=== PATIENT | male | born 1965 | race Caucasian/White ===

== ENCOUNTER 2019-07-11 06:38 | Emergency (ER) | payer BC ==
[2019-07-11] MEDS ORDERED: Albuterol/Ipratropium 3.0-0.5 MG/3 ML Neb Soln NEB ONE (07:12)
--- NOTE | 2019-07-11 07:30 | EDM.PDOC ---
ED HPI GENERAL MEDICAL PROBLEM - General Chief Complaint: Respiratory Problem Stated Complaint: SOB Time Seen by Provider: 07/11/19 06:58 Source of Information: Reports: Patient, RN Notes Reviewed - History of Present Illness INITIAL COMMENTS - FREE TEXT/NARRATIVE: 53-year-old male comes in with cough, shortness of breath. He did have onset of some type of upper respiratory infection about a week ago with cough and what sounds like chills, possible fever. He was ill for several days and then did seem to be getting better. He states he started coughing more during the night and again this morning Cough has been nonproductive. He is concerned about worsening shortness of breath. He states that he is especially more shortness of breath with exertion. He does have fairly longstanding smoking history initially stating that he started 20 years ago but then admitted he started in high school which would be more like 35 years ago. 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 He did not get a flu shot last fall. - Related Data Allergies Allergy/AdvReac Type Severity Reaction Status Date / Time No Known Allergies Allergy Verified 07/11/19 06:52 Home Meds: Home Meds . [No Known Home Meds] 07/11/19 [History] Past Medical History - Past Health History Medical/Surgical History: Denies Medical/Surgical History Social & Family History - Tobacco Use Smoking Status *Q: Current Some Day Smoker Years of Tobacco use: 20 Packs/Tins Daily: 0.2 ED ROS GENERAL - Review of Systems Review Of Systems: See Below Constitutional: Reports: Fever, Chills HEENT: Denies: Rhinitis, Sinus Problem, Throat Pain Respiratory: Reports: Shortness of Breath, Wheezing, Cough ([place]), Sputum Cardiovascular: Denies: Chest Pain (And) GI/Abdominal: Denies: Abdominal Pain, Nausea, Vomiting Skin: Reports: No Symptoms ED EXAM, GENERAL - Physical Exam Exam: See Below General Appearance: Alert, No Apparent Distress Nose: Normal Inspection Throat/Mouth: Normal Inspection, Normal Oropharynx Head: Atraumatic. No: Facial Swelling Neck: Supple, Full Range of Motion Respiratory/Chest: No Respiratory Distress, Lungs Clear, Normal Breath Sounds. No: Rhonchi, Wheezing Cardiovascular: Tachycardia Extremities: No: Pedal Edema, Leg Pain Neurological: Alert, Oriented Skin Exam: Warm, Dry, Normal Color Course - Vital Signs Last Recorded V/S: Last Vital Signs Temp 97.2 F 07/11/19 06:52 Pulse 104 H 07/11/19 06:52 Resp 16 07/11/19 06:52 BP 142/109 H 07/11/19 06:52 Pulse Ox 98 07/11/19 07:21 - Orders/Labs/Meds Orders: Active Orders 24 hr Category Date Time Status RT Aerosol Therapy [RC] ASDIRECTED Care 07/11/19 07:13 Active CXR [Chest 2V] [CR] Stat Exams 07/11/19 07:13 Taken Meds: Medications Discontinued Medications Generic Name Dose Route Start Last Admin Trade Name Vijay PRN Reason Stop Dose Admin Albuterol/Ipratropium 3 ml 07/11/19 07:12 07/11/19 07:20 Duoneb 3.0-0.5 Mg/3 Ml NEB 07/11/19 07:13 3 ml ONETIME ONE Administration - Re-Assessments/Exams Free Text/Narrative Re-Assessment/Exam: 07/11/19 07:55 Chest x-ray suggestive for early pneumonia. There is some increased infiltrate peribronchial on the right and also left lower lung field not actively coughing while I have been with him in the room. Febrile. Sats are good and moving air relatively well will prescribe an albuterol inhaler. Strongly encouraged him to quit smoking. Will treat with Zithromax and he does need follow-up in about 1 week. Departure - Departure Time of Disposition: 07:56 Disposition: Home, Self-Care 01 Clinical Impression: Pneumonia, Bronchitis - Discharge Information Instructions: Sepsis, Adult, Community-Acquired Pneumonia, Adult Referrals: PCP,Not In Area [Primary Care Provider] - Forms: ED Department Discharge, ED Return to Work/School Form Additional Instructions: Albuterol inhaler 2 puffs every 4 to 6 hours as needed for wheezing or difficulty breathing, Zithromax antibiotic 500 milligrams today and then 250 mg for the next 4 days. Try very hard to stop smoking. Vaporizer or steam as needed. Follow-up at our [facility] medical clinic in about 1 week for recheck. Call [phone] for appointment. Retiurn to ED as needed. Sepsis Event Note - Evaluation Sepsis Screening Result: No Definite Risk - Focused Exam Vital Signs: Vital Signs Temp Pulse Resp BP Pulse Ox Pulse Ox 07/11/19 07:21 98 07/11/19 06:52 97.2 F 104 H 16 142/109 H 98 Date Exam was Performed: 07/11/19 Time Exam was Performed: 08:02 - My Orders Last 24 Hours: My Active Orders 07/11/19 07:13 RT Aerosol Therapy [RC] ASDIRECTED CXR [Chest 2V] [CR] Stat - Assessment/Plan Last 24 Hours: My Active Orders 07/11/19 07:13 RT Aerosol Therapy [RC] ASDIRECTED CXR [Chest 2V] [CR] Stat
--- NOTE | 2019-07-11 08:51 | CR ---
Chest: PA and lateral views of the chest were obtained. Comparison: No prior chest x-ray is available. Heart is mildly enlarged. Increased lung markings are seen believed to represent pulmonary vascular congestion. Mild asymmetric increased density within left lung base is seen either due to atelectasis or possibly very minimal early pneumonia. Probable small bilateral pleural effusions. Impression: 1. Findings suspicious for mild CHF. 2. Minimal increased density of the left base either due to atelectasis or minimal area of developing pneumonia. Please correlate with the patient's symptoms. Diagnostic code #3 This report was dictated in [place] Standard Time
== END 2019-07-11 08:09 | disposition home or self-care (01) ==
LOC: JD.ED 06:38
DX: J18.9 Pneumonia, unspecified organism (principal); J40 Bronchitis, not specified as acute or chronic; F17.210 Nicotine dependence, cigarettes, uncomplicated
CPT/HCPCS: 71046; 71046-26; 94640; 99283; 99285-25; J7620-GY

== ENCOUNTER 2019-07-31 05:57 | Emergency (ER) | payer BC, OTHER ==
--- NOTE | 2019-07-31 06:16 | EDM.PDOC ---
<Jens Doan - Last Filed: 07/31/19 06:22> ED HPI GENERAL MEDICAL PROBLEM - General Chief Complaint: Respiratory Problem Stated Complaint: SOB/COUGH/BOTH LEGS ARE SWOLLEN Time Seen by Provider: 07/31/19 06:16 - History of Present Illness INITIAL COMMENTS - FREE TEXT/NARRATIVE: 53-year-old male presents the emergency room with increasing shortness of breath and worsening lower extremity edema. The patient was seen here on the thought to have pneumonia started on antibiotics. He did not improve he was seen in the clinic on the repeat x- ray showed possible worsening pneumonia with cardiomegaly increased vascular markings. He was treated with the benzoin 100 mg 3 times daily a Z-Tremayne and Augmentin 1000 mg twice daily. Since then he continues to worsen he has a productive cough bringing up foamy white material without evidence of blood but it is a very frequent cough. He is also noticed increased leg swelling. He has not run fevers in quite a while he is having 3 or 4 loose stools a day and the first day of the second round of antibiotics he had significant nausea and vomited a few times. Patient denies any chest pain other than when he coughs. Patient quit smoking back in June and he has an extensive smoking history. Chest Pain Score (Numeric/FACES): 4 - Related Data Allergies Allergy/AdvReac Type Severity Reaction Status Date / Time No Known Allergies Allergy Verified 07/31/19 06:20 Home Meds: Home Meds Amoxicillin/Potassium Clav [Amox-Clav ER 1,000-62.5 mg Tab] 07/31/19 [History] Levofloxacin [Levaquin] 750 mg PO DAILY #7 tablet 07/31/19 [Rx] Past Medical History - Past Health History Medical/Surgical History: Denies Medical/Surgical History ED ROS GENERAL - Review of Systems Review Of Systems: See Below Constitutional: Denies: Fever, Chills HEENT: Reports: No Symptoms Respiratory: Reports: Shortness of Breath, Cough, Sputum (Clear foamy sputum). Denies: Hemoptysis Cardiovascular: Reports: Dyspnea on Exertion, Edema. Denies: Chest Pain Endocrine: Reports: No Symptoms GI/Abdominal: Reports: Other (Some nausea and vomiting when he started the 2 most recent antibiotics this has resolved he has some intermittent stomach upset he is having 3-4 loose semi-formed stools daily not having significant abdominal pain) : Reports: No Symptoms Musculoskeletal: Reports: No Symptoms Skin: Reports: No Symptoms Neurological: Reports: No Symptoms ED EXAM, GENERAL - Physical Exam Exam: See Below Exam Limited By: No Limitations General Appearance: Alert, No Apparent Distress Head: Atraumatic, Normocephalic Neck: Normal Inspection, Supple, Non-Tender, Full Range of Motion, Other (Seen JVD was somewhat difficult every time I put my hand on his right upper quadrant he would start a cough) Respiratory/Chest: No Respiratory Distress, Lungs Clear, Decreased Breath Sounds Cardiovascular: Regular Rate, Rhythm, No Murmur, Other (1-2+ pitting edema bilateral lower extremities) GI/Abdominal: Normal Bowel Sounds, Soft, Non-Tender (Male) Exam: No Hernia Back Exam: Normal Inspection. No: CVA Tenderness (L), CVA Tenderness (R) Extremities: Other (Bilateral lower extremity pitting edema) Neurological: Alert, Oriented, Normal Cognition Course - Vital Signs Last Recorded V/S: Last Vital Signs Temp 98.6 F 07/31/19 06:15 Pulse 109 H 07/31/19 06:15 Resp 20 07/31/19 06:15 BP 110/88 07/31/19 06:15 Pulse Ox 99 07/31/19 06:15 - Orders/Labs/Meds Orders: Active Orders 24 hr Category Date Time Status EKG Documentation Completion [RC] STAT Care 07/31/19 06:48 Active LD ISOENZYMES [REF] Stat Lab 07/31/19 07:12 Received Heparin Sodium/D5W [Heparin 25,000 Units in D5W 500 ML] Med 07/31/19 08:45 Active 25,000 units in 500 ml IV TITRATE Medication Orders Heparin Sodium/Dextrose (Heparin 25,000 Units In D5w 500 Ml) 25,000 units in 500 mls @ 18 mls/hr IV TITRATE JED; Protocol Last Admin: 07/31/19 08:47 Dose: 12 units/kg/hr, 18 mls/hr Labs: Laboratory Tests 07/31/19 07/31/19 07/31/19 Range/Units 07:12 07:12 07:12 WBC 7.70 (4.23-9.07) K/mm3 RBC 4.39 L (4.63-6.08) M/mm3 Hgb 14.5 (13.7-17.5) gm/dl Hct 43.8 (40.1-51.0) % MCV 99.8 H (79.0-92.2) fl MCH 33.0 H (25.7-32.2) pg MCHC 33.1 (32.2-35.5) g/dl RDW Std Deviation 51.4 H (35.1-43.9) fL Plt Count 192 (163-337) K/mm3 MPV 10.5 (9.4-12.3) fl Neut % (Auto) 73.1 H (34.0-67.9) % Lymph % (Auto) 15.7 L (21.8-53.1) % [place] % (Auto) 10.4 (5.3-12.2) % Eos % (Auto) 0.4 L (0.8-7.0) Baso % (Auto) 0.3 (0.1-1.2) % Neut # (Auto) 5.63 H (1.78-5.38) K/mm3 Lymph # (Auto) 1.21 L (1.32-3.57) K/mm3 [place] # (Auto) 0.80 (0.30-0.82) K/mm3 Eos # (Auto) 0.03 L (0.04-0.54) K/mm3 Baso # (Auto) 0.02 (0.01-0.08) K/mm3 ESR (0-15) mm/hr Sodium 135 L (136-145) mEq/L Potassium 4.2 (3.5-5.1) mEq/L Chloride 100 (98-107) mEq/L Carbon Dioxide 22 (21-32) mEq/L Anion Gap 17.2 H (5-15) BUN 17 (7-18) mg/dL Creatinine 1.0 (0.7-1.3) mg/dL Est Cr Clr Drug Dosing TNP Estimated GFR (MDRD) > 60 (>60) mL/min BUN/Creatinine Ratio 17.0 (14-18) Glucose 103 (74-106) mg/dL Lactic Acid (0.4-2.0) mmol/L Calcium 9.2 (8.5-10.1) mg/dL Ferritin (26-388) ng/ml Total Bilirubin 1.6 H (0.2-1.0) mg/dL AST 88 H (15-37) U/L ALT 285 H (16-63) U/L Alkaline Phosphatase 140 H (46-116) U/L Troponin I 0.108 H* (0.00-0.056) ng/mL C-Reactive Protein (<1.0) mg/dL NT-Pro-B Natriuret Pep 5256 H (0-125) pg/mL Total Protein 6.3 L (6.4-8.2) g/dl Albumin 3.4 (3.4-5.0) g/dl Globulin 2.9 gm/dL Albumin/Globulin Ratio 1.2 (1-2) 07/31/19 07/31/19 07/31/19 Range/Units 07:12 07:12 07:12 WBC (4.23-9.07) K/mm3 RBC (4.63-6.08) M/mm3 Hgb (13.7-17.5) gm/dl Hct (40.1-51.0) % MCV (79.0-92.2) fl MCH (25.7-32.2) pg MCHC (32.2-35.5) g/dl RDW Std Deviation (35.1-43.9) fL Plt Count (163-337) K/mm3 MPV (9.4-12.3) fl Neut % (Auto) (34.0-67.9) % Lymph % (Auto) (21.8-53.1) % [place] % (Auto) (5.3-12.2) % Eos % (Auto) (0.8-7.0) Baso % (Auto) (0.1-1.2) % Neut # (Auto) (1.78-5.38) K/mm3 Lymph # (Auto) (1.32-3.57) K/mm3 [place] # (Auto) (0.30-0.82) K/mm3 Eos # (Auto) (0.04-0.54) K/mm3 Baso # (Auto) (0.01-0.08) K/mm3 ESR 13 (0-15) mm/hr Sodium (136-145) mEq/L Potassium (3.5-5.1) mEq/L Chloride (98-107) mEq/L Carbon Dioxide (21-32) mEq/L Anion Gap (5-15) BUN (7-18) mg/dL Creatinine (0.7-1.3) mg/dL Est Cr Clr Drug Dosing Estimated GFR (MDRD) (>60) mL/min BUN/Creatinine Ratio (14-18) Glucose (74-106) mg/dL Lactic Acid (0.4-2.0) mmol/L Calcium (8.5-10.1) mg/dL Ferritin 329 (26-388) ng/ml Total Bilirubin (0.2-1.0) mg/dL AST (15-37) U/L ALT (16-63) U/L Alkaline Phosphatase (46-116) U/L Troponin I (0.00-0.056) ng/mL C-Reactive Protein 2.7 H* (<1.0) mg/dL NT-Pro-B Natriuret Pep (0-125) pg/mL Total Protein (6.4-8.2) g/dl Albumin (3.4-5.0) g/dl Globulin gm/dL Albumin/Globulin Ratio (1-2) 07/31/19 07/31/19 Range/Units 10:15 11:55 WBC (4.23-9.07) K/mm3 RBC (4.63-6.08) M/mm3 Hgb (13.7-17.5) gm/dl Hct (40.1-51.0) % MCV (79.0-92.2) fl MCH (25.7-32.2) pg MCHC (32.2-35.5) g/dl RDW Std Deviation (35.1-43.9) fL Plt Count (163-337) K/mm3 MPV (9.4-12.3) fl Neut % (Auto) (34.0-67.9) % Lymph % (Auto) (21.8-53.1) % [place] % (Auto) (5.3-12.2) % Eos % (Auto) (0.8-7.0) Baso % (Auto) (0.1-1.2) % Neut # (Auto) (1.78-5.38) K/mm3 Lymph # (Auto) (1.32-3.57) K/mm3 [place] # (Auto) (0.30-0.82) K/mm3 Eos # (Auto) (0.04-0.54) K/mm3 Baso # (Auto) (0.01-0.08) K/mm3 ESR (0-15) mm/hr Sodium (136-145) mEq/L Potassium (3.5-5.1) mEq/L Chloride (98-107) mEq/L Carbon Dioxide (21-32) mEq/L Anion Gap (5-15) BUN (7-18) mg/dL Creatinine (0.7-1.3) mg/dL Est Cr Clr Drug Dosing Estimated GFR (MDRD) (>60) mL/min BUN/Creatinine Ratio (14-18) Glucose (74-106) mg/dL Lactic Acid 1.8 (0.4-2.0) mmol/L Calcium (8.5-10.1) mg/dL Ferritin (26-388) ng/ml Total Bilirubin (0.2-1.0) mg/dL AST (15-37) U/L ALT (16-63) U/L Alkaline Phosphatase (46-116) U/L Troponin I 0.080 H* (0.00-0.056) ng/mL C-Reactive Protein (<1.0) mg/dL NT-Pro-B Natriuret Pep (0-125) pg/mL Total Protein (6.4-8.2) g/dl Albumin (3.4-5.0) g/dl Globulin gm/dL Albumin/Globulin Ratio (1-2) Meds: Medications Generic Name Dose Route Start Last Admin Trade Name Freq PRN Reason Stop Dose Admin Heparin Sodium/Dextrose 25,000 units in 500 mls @ 18 mls/hr 07/31/19 08:45 08:47 Heparin 25,000 Units In D5w 500 Ml IV 12 units/kg/hr TITRATE JED 18 mls/hr Administration Protocol 12 UNITS/KG/HR Discontinued Medications Generic Name Dose Route Start Last Admin Trade Name Freq PRN Reason Stop Dose Admin Aspirin 324 mg 07/31/19 08:19 07/31/19 08:32 Aspirin PO 07/31/19 08:20 324 mg ONETIME ONE Administration Furosemide 20 mg 07/31/19 07:08 07/31/19 07:32 Lasix IVPUSH 07/31/19 07:09 20 mg ONETIME ONE Administration Heparin Sodium (Porcine) 4,000 units 07/31/19 08:33 07/31/19 08:46 Heparin Sodium IVPUSH 07/31/19 08:34 4,000 units .BOLUS ONE Administration - Re-Assessments/Exams Free Text/Narrative Re-Assessment/Exam: 07/31/19 07:18 Work-up initiated further care and disposition per Dr. De La O as it is change of shift. Departure - Departure Disposition: Home, Self-Care 01 Clinical Impression: Pneumonia Qualifiers: Pneumonia type: due to unspecified organism Lung location: lower lobe of lung - Discharge Information Prescriptions: Levofloxacin [Levaquin] 750 mg PO DAILY #7 tablet Referrals: PCP,None [Primary Care Provider] - Forms: ED Department Discharge Additional Instructions: Levaquin antibiotic, 750 mg daily for 7 days. Albuterol inhaler 2 puff q 4 to 6 hr as needed for cough, difficulty breathing. Phenergan cough medication 2 tsp q 4 to 6 hr as needed for severe cough. This prescriptions have been sent electronic or faxed to [facility]. Follow up clinic in about 7 days, call for appointment. Return to ED as needed if sx worsening in any way. Sepsis Event Note - Focused Exam Vital Signs: Vital Signs Temp Pulse Resp BP Pulse Ox 07/31/19 06:15 98.6 F 109 H 20 110/88 99 Date Exam was Performed: 07/31/19 Time Exam was Performed: 06:22 - My Orders Last 24 Hours: My Active Orders 07/31/19 07:12 LD ISOENZYMES [REF] Stat 07/31/19 08:45 Heparin Sodium/D5W [Heparin 25,000 Units in D5W 500 ML] 25,000 units in 500 ml IV TITRATE - Assessment/Plan Last 24 Hours: My Active Orders 07/31/19 07:12 LD ISOENZYMES [REF] Stat 07/31/19 08:45 Heparin Sodium/D5W [Heparin 25,000 Units in D5W 500 ML] 25,000 units in 500 ml IV TITRATE <N[place] De La O - Last Filed: 07/31/19 13:15> EKG INTERPRETATION EKG Date: 07/31/19 Rhythm: Other (sinus tach, rate 102) [place]: LAD-Left [place] Deviation P-Wave: Present QRS: Other (LVH with secondary repolarization abnormality) ST-T: Elevated (AVL, V2-V5) Course - Re-Assessments/Exams Free Text/Narrative Re-Assessment/Exam: 07/31/19 08:22. Have assumed care from Dr Doan after change of shift. I agree with his hx and exam as documented. CXR shows increased markings bilat lower lungfields etiology unclear. WBC nl, afebrile. He has had continued frequent cough for about the past 10 days. He had cough 20 days ago that did get better after a Z pack. He has had no definite fever or chills. He has travel hx home to [place] 10 days ago and started getting more ill while he was there. he has a very strong smoking hx. He quit about 2 months ago. He has been more short of breath than usual the last few days. Have added CRP, ferritan, sed rate, LDH to his labs. He was tested for covid 5 days ago and the test came back neg. I have ordered ASA 324 PO, will start heparin bolus and drip for now. Will do a 3 hr trop, see how his other labs come back and than go from there. 07/31/19 11:25. Repeat trop has come back at .08, improved from initial trop of 0.18 3 hrs prior. CRP 2.7, BNP 5256. Clinically he is in mild CHF with superimposed bronchitis, viral pneumonia? Will discuss with Hospitalist conference planning manager , Dr Brooks. 07/31/19 12:45. Have discussed with Dr Brooks. She advises discharge home on levaquin for 1 week, albuterol inhaler. She advises no meds for CHF for now. will also prescribed phenergan with codeine cough medication to help him better rest, discharge instr. as documented. Departure - Departure Time of Disposition: 13:07 Condition: Fair Sepsis Event Note - Focused Exam Date Exam was Performed: 07/31/19 Time Exam was Performed: 13:05
[2019-07-31] MEDS ORDERED: Furosemide 20 MG/2 ML VIAL IVPUSH ONE (07:08)
--- NOTE | 2019-07-31 08:16 | CR ---
Chest: Portable view of the chest was obtained. Comparison: Prior chest x-ray of 07/26/19. Slight increasing density within both lung bases is noted. Upper lungs are clear. Heart size at the upper limits of normal. Tortuous thoracic aorta is noted. Bony structures are grossly intact. Impression: 1. Increasing density within both lung bases from prior study. Uncertain if findings represent worsening atelectasis or represent bibasilar pneumonia, bacterial or viral in etiology. 2. Other stable findings as noted above. Diagnostic code #3 This report was dictated in MDT
[2019-07-31] MEDS ORDERED: Aspirin 81 MG Tab.Chew PO ONE (08:19)
[2019-07-31] MEDS ORDERED: Heparin Sodium 5,000 Units/ML Vial IVPUSH ONE (08:33)
[2019-07-31] MEDS ORDERED: Heparin Sodium/D5W 25,000 UNITS/500 ML BAG IV SCH (08:45)
== END 2019-07-31 13:30 | disposition home or self-care (01) ==
LOC: JD.ED 05:57
DX: J18.9 Pneumonia, unspecified organism (principal)
CPT/HCPCS: 36415; 71045; 80053; 82728; 83605; 83615; 83625; 83880; 84484; 85025; 85652; 86140; 93005; 96365; 96366; 96375; 99285; A9270; J1644; 93010; 99284